=== PATIENT | male | born 1980 | race Caucasian/White ===

== ENCOUNTER → 2022-07-04 11:57 | Outpatient (CLI) | payer OTHER, SELFPAY ==
--- NOTE | ~2022-07-04 | XR_ITS ---
EXAMINATION: XR lumbar spine 2-3V DATE: 07/04/2022 12:19 INDICATION: Low back pain TECHNIQUE: Anteroposterior and lateral views of the lumbar spine, and cone-down lateral view of the l umbosacral junction were obtained. COMPARISON: None. FINDINGS: There is no fracture, dislocation, or subluxation. The vertebral body heights, alignment, a nd intervertebral disc spaces are normal. The paravertebral soft tissues are unremarkable. IMPRESSION: 1. No acute osseous abnormality. Reviewed, dictated and finalized at location A.
== END ==
PROVIDERS: PCP Internal Medicine; Visit Provider Internal Medicine
DX: M54.50 Low back pain, unspecified (principal)
CPT/HCPCS: 72100

== ENCOUNTER → 2022-07-11 07:32 | Outpatient (CLI) | payer OTHER, SELFPAY ==
--- NOTE | ~2022-07-11 | MR_ITS ---
EXAMINATION: MR lumbar spine wo con DATE: 07/11/2022 07:59 INDICATION: Low back pain. TECHNIQUE: Magnetic resonance imaging (MRI) of the lumbar spine was performed without intravenous con trast. Sequences included sagittal T2-weighted FSE, sagittal T2-weighted FS FSE, sagittal T1-weighted FSE, and axial T2-weighted FSE. COMPARISON: None FINDINGS: Bone alignment is normal. There is mild chronic anterior wedging of T12 vertebral body. The re is mildly decreased disc height at L4-L5 and moderately decreased disc height at L5-S1. The distal spinal cord signal intensity is normal. The conus medullaris is at L1. The following disc levels are specifically discussed: L1-L2: The disc does not extend beyond the endplate margin. There is moderate bilateral facet joint o steoarthritis. There is no neural foraminal stenosis. There is no central canal stenosis. L2-L3: The disc does not extend beyond the endplate margin. There is mild bilateral facet joint osteo arthritis. There is no neural foraminal stenosis. There is no central canal stenosis. L3-L4: The disc does not extend beyond the endplate margins. There is mild right and moderate left fa cet joint osteoarthritis. There is no neural foraminal stenosis. There is no central canal stenosis. L4-L5: The disc is bulging with superimposed right central extrusion. There is moderate bilateral fac et joint osteoarthritis. There is mild bilateral neural foraminal stenosis. There is mild central can al stenosis. L5-S1: The disc is bulging and has an annular fissure. There is mild bilateral facet joint osteoarthr itis. There is mild right and moderate left neural foraminal stenosis. There is mild central canal st enosis. IMPRESSION: 1. Moderate lower lumbar spondylosis. Reviewed, dictated and finalized at location A.
== END ==
PROVIDERS: PCP Internal Medicine; Visit Provider Internal Medicine
DX: M47.896 Other spondylosis, lumbar region (principal)
CPT/HCPCS: 72148

== ENCOUNTER 2024-07-09 07:12 | Outpatient (CLI) | payer BC, SELFPAY ==
--- NOTE | ~2024-07-09 | MR_ITS ---
EXAMINATION: MR lumbar spine wo con DATE: 07/09/2024 07:40 INDICATION: Lumbar radicular pain TECHNIQUE: Magnetic resonance imaging (MRI) of the lumbar spine was performed without intravenous con trast. Sequences included sagittal T2-weighted FSE, sagittal T2-weighted FS FSE, sagittal T1-weighted FSE, and axial T2-weighted FSE. COMPARISON: None FINDINGS: Alignment is normal. Chronic mild anterior wedging at T12. Lumbar vertebral body heights are normal. Normal marrow signal. Mild to moderately decreased disc heights, unchanged at L5-S1 and increased at L4-L5. There are annular fissures with disc extrusions at both levels. The conus medullaris terminate s at L1. There is normal signal in the caudal spinal cord. Paravertebral soft tissues are unremarkabl e. The following disc levels are specifically discussed: T12-L1: The disc does not extend beyond the endplate margin. There is mild bilateral facet joint oste oarthritis. There is no neural foraminal stenosis. There is no central canal stenosis. L1-L2: The disc does not extend beyond the endplate margin. There is moderate bilateral facet joint o steoarthritis. There is no neural foraminal stenosis. There is no central canal stenosis. L2-L3: Small left and minimal right foraminal zone disc protrusions. There is mild bilateral facet camelia int osteoarthritis. There is minimal bilateral neural foraminal stenosis. There is no central canal s tenosis. L3-L4: Small bilateral foraminal zone disc protrusions. There is mild to moderate bilateral facet isadora nt osteoarthritis. There is mild bilateral neural foraminal stenosis. There is no central canal steno sis. L4-L5: Disc is mildly bulging with superimposed annular fissure and increased size of a right paracen tral disc extrusion which measures 1.5 cm left to right, 8 mm anteroposteriorly and extends up to 8 m m caudal to the level of the superior endplate of L5. There is moderate bilateral facet joint osteoar thritis. There is moderate bilateral neural foraminal stenosis. There is mild to moderate right-sided predominant central canal stenosis with narrowing of the right lateral recess exerting mass effect o n the traversing right L5 nerve root. L5-S1: Disc is mildly bulging with annular fissure and no significant change in a central disc extrus ion which extends 1.7 cm left to right, 5 mm AP and extending 1-2 mm cephalad and caudal to the level of the endplates. There is mild bilateral facet joint osteoarthritis. There is moderate bilateral ne ural foraminal stenosis. There is mild central canal stenosis. IMPRESSION: 1. Interval progression of moderate lower lumbar spondylosis. Reviewed, dictated and finalized at location A.
== END 2024-07-09 07:13 ==
PROVIDERS: PCP Internal Medicine; Visit Provider Nurse Practitioner Family
DX: M47.26 Other spondylosis with radiculopathy, lumbar region (principal)
CPT/HCPCS: 72148

== ENCOUNTER 2025-04-26 19:02 | Emergency (ER) | payer BC, SELFPAY ==
[2025-04-26] VITALS (14 sets, daily range): BP systolic 118–184; BP diastolic 84–110; PULSE 88–133; RESP 15–33; TEMP 36.8–36.9; O2SAT 90–100
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
--- NOTE | ~2025-04-26 | XR_ITS ---
EXAMINATION: XR chest-chest tube insert/pos Exam Date/Time: 04/26/2025 21:25 CDT HISTORY: CHEST TUBE INSERT #2 Comparison: Same date at 9:20 PM. RESULT: Lines, tubes, and devices: Left thoracostomy tube which is kinked at the level of the side port, tip terminating inferiorly and medially. Lungs and pleura: Left pneumothorax, better visualized on prior CT. Stable left medial basilar conso lidation. Cardiomediastinal silhouette: Stable. Other: No acute upper abdominal finding. Multiple left rib fractures. Left ventricular fracture. IMPRESSION: Kinked left chest tube, tip terminating inferomedially. Reviewed, dictated and finalized at location K.
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
--- NOTE | ~2025-04-26 | XR_ITS ---
EXAMINATION: XR chest-chest tube insert/pos Exam Date/Time: 04/26/2025 21:40 CDT HISTORY: NEW CHEST TUBE PLACEMENT Comparison: Same date at 9:26 PM. FINDINGS/IMPRESSION: Lucency over the left lung base likely represents a portion of the known pneumothorax. Persistent, pe rhaps slightly improved left medial basilar consolidation. Interval replacement/repositioning of the left chest tube, tip projects medially over the lower lung, intrathoracic side port, and no kinking. Subcutaneous gas over the left lateral chest. Reviewed, dictated and finalized at location K.
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
[2025-04-26] MEDS: HYDROmorphone HCL INJ (*CRX) 2 MG/ML VIAL 0.5 MG IV PUSH ×2 (19:55→23:10)
[2025-04-26 20:11] LABS: Basophils Percent Auto 0.2 % (0.2-1.2); Eosinophils Absolute Auto 0.1 K/mm3 (0-0.3); Eosinophils Percent Auto 0.5 % (0-4.4); Hematocrit 48.9 % (42.0-52.0); Hemoglobin 16.2 g/dL (14.0-18.0); Immature Granulocyte Absolute 0.16 K/mm3 (0.00-0.031); Lymphocytes Absolute Auto 1.81 K/mm3 (0.9-3.2); Lymphocytes Percent Auto 11.8 % (18.3-44.2); Mean Corpuscular HGB Conc 33.1 g/dl (32-36); Mean Corpuscular Hemoglobin 29.8 pg (26-34); Mean Corpuscular Volume 90.1 fl (80-100); Mean Platelet Volume 11.1 fl (7.4-10.4); Monocytes Absolute Auto 0.8 K/mm3 (0.1-0.6); Monocytes Percent Auto 5.4 % (2.6-8.5); Neutrophils Absolute Auto 12.4 K/mm3 (1.3-6.7); Neutrophils Percent Auto 81.1 % (45.5-73.1); Platelet Count Result 228 k/mm3 (150-375); Red Blood Count 5.43 M/mm3 (4.6-6.20); Red Cell Distribution Width 12.9 % (11.5-14.5); White Blood Count 15.3 K/mm3 (4.5-10.0)
--- OUTSIDE RECORDS SUMMARY | 2025-04-26 20:20 | XMS_ITS | Clinical Summary ---
Author Organization [facility] Address [address] [place] [address] Care Team Providers Care Outsole Cementer Machine Name Role Phone Unavailable Primary Care Provider Unavailabl e Source Comments [facility],non-owned Affiliates and Associated Physician Practices is amultiple site organization consisting of ambulatory clinics and hospital sitesin [place], [place], [place] and [place]. This disclosure is being madepursuant to the Care Everywhere program and may not contain all information available regarding this patient. Last updated 18.[facility] Allergies No known active allergies Medications * Be aware that medications may not be up to date on this document. Alwaysverify current medications with the patient. 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 [employer] Gender Identity Not on file Sexual Orientation Not on file Last Filed Vital Signs Vital Sign Reading Time Taken Comments Blood Pressure 114/60 07/07/2018 5:15 PM CDT Pulse 67 07/07/2018 5:15 PM CDT Temperature 37.2 C (98.9 F) 07/07/2018 5:15 PM CDT Respiratory Rate 16 04/23/2017 5:08 PM CDT Oxygen Saturation 97% 07/07/2018 5:15 PM CDT Inhaled Oxygen Concentration - - Weight 88.5 kg (195 lb) 07/07/2018 5:15 PM CDT Height 185.4 cm (6' 1) 07/07/2018 5:15 PM CDT Body Mass Index 25.73 07/07/2018 5:15 PM CDT Plan of Treatment Health Maintenance Due Date Last Done Comments HEPATITIS C SCREENING 04/06/1999 DTAP/TDAP/TD VACCINES (1 - Tdap) 2000 HEPATITIS B VACCINE (1 of 3 - 19+ 3-dose series) 2000 LIPID TESTING 05/29/2023 05/29/2018 COVID-19 VACCINE (1 - 2023-2 5 season) 2024 DEPRESSION SCREENING 11/18/2024 INFLUENZA VACCINE (Season Ended) 2025 ZOSTER VACCINE (1 of 2) 2031 HIV SCREENING Completed 05/29/2018 HIB VACCINE Aged Out No longer eligi ble based on patient's age to complete this topic HPV VACCINE Aged Out No longer eligi ble based on patient's age to complete this topic MENINGOCOCCAL (Group B) VACC INE SHARED DECISION-MAKING Aged Out No longer eligibl e based on patient's age to complete this topic MENINGOCOCCAL GROUPS A/C/Y/W VACCINE Aged Out No longer eligible b ased on patient's age to complete this topic PNEUMOCOCCAL VACCINE Aged Out No long er eligible based on patient's age to complete this topic [place] [address]
--- OUTSIDE RECORDS SUMMARY | 2025-04-26 20:20 | XMS_ITS | Clinical Summary ---
Author Organization [facility] Address [address] [place] [address] Phone Care Team Providers Care Laboratory Geneticist Name Role Phone Provider, None Primary Care Provider Unavailabl e Allergies No known active allergies Medications Sildenafil Citrate (VIAGRA PO) Take by mouth. Active Active Problems No known active problems Immunizations Immunization Administration Dates Next Due Influenza Vaccine, Quadrivalent, PF 11/24/2020,1 11/25/2018,11/20/2018 TDAP Vaccine 05/19/2018 Family History Medical History Relation Name Comments Diabetes Father High Cholesterol Father Hypertension Father Pacemaker Father Stroke Father Heart Attack Maternal Grandfather Alzheimer's Disease Maternal Grandmother Breast Cancer Mother Diabetes Mother Uterine Cancer Mother No Known Problems Paternal Grandfather Cancer Paternal Grandmother Uterine Cancer Sister 1 Polycystic Ovarian Syndrome Sister 2 Relation Name Status Comments Father Alive Maternal Grandfather Maternal Grandmother Mother Alive Paternal Grandfather Paternal Grandmother Sister 1 Alive Sister 2 Alive Social History Tobacco Use Types Packs/Day Years Used Date Smoking Tobacco: Former Cigarettes Q uit: 2009 Smokeless Tobacco: Never Tobacco Cessation:Counseling Given: No Comments:started smoking again for a short time in 2014 and then quit again Alcohol Use Standard Drinks/Week Comments Yes 7 (1 standard drink = 0.6 oz pur e alcohol) Rare PHQ-2 Answer Date Recorded Total Score - Questions 1-9 0 /0 05/2021 Sexually Active Control Partners Comments Yes Implant, Condom Female Sex and Gender Information Value Date Recorded Sex Assigned at Not on file Legal Sex Male 10:10 PM CDT Gender Identity Not on file Sexual Orientation Not on file 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 Not on file Not on file Last Filed Vital Signs Vital Sign Reading Time Taken Comments Blood Pressure 110/68 11/24/2020 11:24 AM FLOOR ATTENDANT Pulse 78 11/24/2020 11:24 AM FLOOR ATTENDANT Temperature 37.1 C (98.7 F) 11/24/2020 11:24 AM FLOOR ATTENDANT Respiratory Rate 16 11/24/2020 11:24 AM FLOOR ATTENDANT Oxygen Saturation 98% 11/24/2020 11:24 AM FLOOR ATTENDANT Inhaled Oxygen Concentration - - Weight 92.5 kg (204 lb) 11/24/2020 11:24 AM FLOOR ATTENDANT Height 185.4 cm (6' 1) 11/24/2020 11:24 AM FLOOR ATTENDANT Body Mass Index 26.91 11/24/2020 11:24 AM FLOOR ATTENDANT Plan of Treatment Health Maintenance Due Date Last Done Comments Human Papillomavirus (HPV) Immunization (1 - Male 3-dose series) 1996 Hepatitis B Immunization (1 of 3 - 19+ 3-dose series) 2000 SARS-COV-2 Immunization ( - season) 2024 10/29/2021, 02/17/2021, 01/27/2021 Influenza Immunization (Seas on Ended) 2025 11/24/2020, 09/25/2019, 11/20/2018 Td Immunization Every 10 Yea rs (Adults With 1 Tdap) 05/19/2028 05/19/2018 Respiratory Syncytial Virus (RSV) Immunization (Adult) (1 - 1-dose 75+ series) 2056 Hepatitis C Virus (HCV) Screening Completed 12/22/2019 Meningococcal Immunization (ACWY) Aged Out No longer eligible b ased on patient's age to complete this topic Pneumococcal Immunization Combined Aged Out No longer eligible b ased on patient's age to complete this topic Rotavirus Immunization Aged Out No lo nger eligible based on patient's age to complete this topic Procedures Procedure Name Priority Date/Time Associated Diagnosis Comments HEPATITIS PANEL ACUTE (AHP) Routine 12/22/2019 3:14 PM FLOOR ATTENDANT Screen for STD (sexually transmitted disease) from Last 3 Months or Most Recently Relevant to Health Maintenance Results * HEPATITIS PANEL ACUTE (AHP) (12/22/2019 3:14 PM FLOOR ATTENDANT) HEPATITIS A IGM ANTIBODY NON DETECTED NON DETECTED 12/22/2019 10:27 PM FLOOR ATTENDANT [facility] Comment: IGM Antibodies to HAV not detected. Does not exclude early acute or recovered HAV infection. HEP B CORE AB (IGM) NON DETECTED NON DETECTED 12/22/2019 10:27 PM FLOOR ATTENDANT [facility] Comment:IGM anti-HBC not det ected. Does not exclude the possibility of exposure to or infection with HBV. HEPATITIS B SURFACE ANTIGEN NON DETECTED NON DETECTED 12/22/2019 10:27 PM FLOOR ATTENDANT [facility] Comment:A nonreactive test r esult does not exclude the possibility of exposure to or infection with Hepatitis B virus. A nonreactive test result in individuals with prior exposure to hepatitis B may be due to antigen levels below the detection limit of this assay or lack of antigen reactivity to the antibodies in this assay. hepatitis C antibody 0.08 <1 S/CO 12/22/2019 10:27 PM FLOOR ATTENDANT [facility] Comment: Signal/Cutoff ratio < 0.79 is Nondetected Signal/Cutoff ratio 0.80-0.99 is Grayzone Signal/Cutoff ratio > 0.99 is Detected Supplemental assays are recommended if signal/cutoff ratio is >/=1.00. Signal/cutoff ratio result >/= 5.00 is 97% predictive of positivity for recombinant immunoblot assay (RIBA) and will be reported to the [place] Department of Public Health as required. Blood specimen (specimen) Venipuncture / Unknown 12/22/2019 3:14 PM FLOOR ATTENDANT 12/22/2019 3:14 PM FLOOR ATTENDANT us Annia Cortez APRN, ADJUNCT PHYSICS INSTRUCTOR HEMATOLOGY ORDERABLES F inal Result [facility] [address] [place] [address], [place] from Last 3 Months or Most Recently Relevant to Health Maintenance Care Teams Laboratory Geneticist Relationship Specialty Start Date End Date Provider, None [place] PCP - General 07/11/21
--- OUTSIDE RECORDS SUMMARY | 2025-04-26 20:20 | XMS_ITS | Clinical Summary ---
Author Organization [facility] [address] [place] [id number] Care Team Providers Care Civil Service Worker Name Role Phone Rosaura Sanchez MD Primary Care Provider [phone] Allergies No known active allergies Medications cephalexin (KEFLEX) 250 mg capsule Take 1 capsule (250 mg total) by mouth 4 (four) times a day Active ofloxacin (OCUFLOX) 0.3 % ophthalmic solutionIndications :Acute bacterial conjunctivitis of both eyes instill 2 drops in affected eye(s) every 2 to 4 hours for 2 days, then 2 drops 4 times daily on days 3 through 7 5 mL 4 Active tadalafiL, pulm. hypertension, 20 mg/5 mL (4 mg/mL) suspension Take 5 mg by mouth daily 4 Active Active Problems No known active problems Surgical History Surgery Date Site/Laterality Comments APPENDECTOMY Medical History Medical History Date Comments Lumbar stenosis Disc disorder of lumbar region Family History Medical History Relation Name Comments Diabetes Father Heart disease Father Stroke Father Diabetes Maternal Grandfather Heart disease Maternal Grandfather Diabetes Maternal Grandmother Cancer Mother Diabetes Mother Cancer Other Cancer Paternal Grandmother Cancer Sister Relation Name Status Comments Father Maternal Grandfather Maternal Grandmother Mother Other Paternal Grandmother Sister Social History Tobacco Use Types Packs/Day Years Used Date Smoking Tobacco: Former Smokeless Tobacco: Never Tobacco Cessation:Counseling Given: No Alcohol Use Standard Drinks/Week Comments Yes 0 (1 standard drink = 0.6 oz pur e alcohol) Sex and Gender Information Value Date Recorded Sex Assigned at Not on file Legal Sex Male 9:04 AM HELP DESK REP Gender Identity Not on file Sexual Orientation Not on file Obstetrics History Last Filed Vital Signs Vital Sign Reading Time Taken Comments Blood Pressure 129/78 11/30/2024 9:28 AM HELP DESK REP Pulse 64 11/30/2024 9:28 AM HELP DESK REP Temperature 36.9 C (98.5 F) 12/20/2023 8:22 AM HELP DESK REP Respiratory Rate 18 12/20/2023 8:22 AM HELP DESK REP Oxygen Saturation 96% 12/20/2023 8:22 AM HELP DESK REP Inhaled Oxygen Concentration - - Weight 93.4 kg (206 lb) 11/30/2024 9:28 AM HELP DESK REP Height 185.4 cm (6' 1) 11/30/2024 9:28 AM HELP DESK REP Body Mass Index 27.18 11/30/2024 9:28 AM HELP DESK REP Plan of Treatment Health Maintenance Due Date Last Done Comments Depression Screening 1981 Hepatitis C Screening 1981 Varicella Vaccines (1 of 2 - 13+ 2-dose series) 1994 Regular Well Visit/Exam 18-64 1999 Covid-19 Vaccine (2023-2 5 season) 2024 10/29/2021, 02/17/2021, 01/27/2021 Influenza Vaccine (Season Ended) 2025 11/24/2020, 09/25/2019, 11/20/2018 DTaP/Tdap/Td Vaccine (2 - Td or Tdap) 05/19/2028 05/19/2018 Hepatitis B Screening Completed 07/10/2023 , 06/20/2022 HPV Vaccines Aged Out No longer eligi ble based on patient's age to complete this topic Pneumococcal vaccine <65 Aged Out No longer eligible based on patient's age to complete this topic Insurance [employer] OOS [employer] O[employer] Care Teams Civil Service Worker Relationship Specialty Start Date End Date Rosaura Sanchez MD PCP - General Internal Medicine 12/20/23
--- OUTSIDE RECORDS SUMMARY | 2025-04-26 20:20 | XMS_ITS | Referral Summary ---
Author Organization [facility] Physician Of [facility] [address] Address [address] [place] [address] Care Team Providers Care Well Logging Captain Name Role Phone Rosaura Sanchez MD Primary Care Provider [phone] Allergies No known active allergies Medications cephalexin [...] Active Active Problems No known active problems Social History Tobacco Use Types Packs/Day Years Used Date Smoking Tobacco: Former Smokeless Tobacco: Never Tobacco Cessation:Counseling Given: No Alcohol Use Standard Drinks/Week Comments Yes 0 (1 standard drink = 0.6 oz pur e alcohol) Sex and Gender Information Value Date Recorded Sex Assigned at Not on file Legal Sex Male 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 Gender Identity Not on file Sexual Orientation Not on file Last Filed Vital Signs Vital Sign Reading Time Taken Comments Blood Pressure 129/78 11/30/2024 9:28 AM SOUND RECORDING TECHNICIAN Pulse 64 11/30/2024 9:28 AM SOUND RECORDING TECHNICIAN Temperature 36.9 C (98.5 F) 12/20/2023 8:22 AM SOUND RECORDING TECHNICIAN Respiratory Rate 18 12/20/2023 8:22 AM SOUND RECORDING TECHNICIAN Oxygen Saturation 96% 12/20/2023 8:22 AM SOUND RECORDING TECHNICIAN Inhaled Oxygen Concentration - - Weight 93.4 kg (206 lb) 11/30/2024 9:28 AM SOUND RECORDING TECHNICIAN Height 185.4 cm (6' 1) 11/30/2024 9:28 AM SOUND RECORDING TECHNICIAN Body Mass Index 27.18 11/30/2024 9:28 AM SOUND RECORDING TECHNICIAN Plan of Treatment [place] [id number] [place] [id number] OOS Care Teams Well Logging Captain Relationship Specialty Start Date End Date Rosaura Sanchez MD PCP - General Internal Medicine 12/20/23
[2025-04-26 20:21] LABS: Alanine Aminotransferase 46 U/L (6-50); Albumin Level 4.3 g/dL (3.5-5.1); Alkaline Phosphatase 48 U/L (38-126); Anion Gap 8 mmol/L (4-12); Aspartate Amino Transferase 40 U/L (17-59); Bilirubin,Total 0.5 mg/dL (0.2-1.3); Blood Urea Nitrogen 18 mg/dL (9-20); Calcium 8.6 mg/dL (8.4-10.2); Carbon Dioxide 24 mmol/L (22-30); Chloride 102 mmol/L (98-107); Estimated CRCL calculation 67 ml/min; Estimated Glomerular Filt Rate 56; Glucose 100 mg/dL (65-110); Potassium 4.2 mmol/L (3.4-5.0); Sodium 134 mmol/L (137-145); Total Protein 6.9 g/dL (6.3-8.2)
[2025-04-26 20:22] LABS: INR 1.1
[2025-04-26 20:23] LABS: Partial Thromboplastin Time 23.1 Seconds (22.3-36.8)
[2025-04-26] MEDS: LACTATED RINGERS 1,000 ML 999 ML IV CONT (20:38)
[2025-04-26] MEDS: KETAMINE HCL (*CRX) 500 MG/10 ML VIAL 474 MG IM (20:50)
[2025-04-26] MEDS: MIDAZOLAM HCL (*CRX) 2 MG/2 ML VIAL (21:38)
[2025-04-26] MEDS: TETANUS,DIPHTHERIA,AC PERTUSSIS ADULT (0.5 ML) BOOSTRIX IM (22:51)
[2025-04-26] MEDS: ceFAZolin 2 GM/D5W 50 ML 2 GM/50 ML BAG IVPB (22:52)
--- NOTE | 2025-04-26 22:55 | PC.NURSE ---
Moderate sedation performed for a chest tube Time out taken at 2048 Ketamine 474mg IM bilateral vastus lateralis given at 2049 vitals at 2050 are pulse 88, 100% O2 on 15L, respirations of 33, CO2 of 40, and blood pressure of 140/89. X-Ray of chest tube placement showed a kink in the tube. EDP stated we are going to take out the current chest tube and replace it. EDP verbal order of 2mg Versed to be given IV for the replacement of the chest tube. 2mg Versed given at 2137. Vitals at that time pulse of 144, 94% on 15L, respirations of 18, CO2 of 49, and blood pressure of 156/106. Patient fully awake at 2154. pt is A+Ox4 at this time. EDP used a 32 fr chest tube.
[2025-04-26] MEDS: KETOROLAC 15 MG/ML VIAL (*BKC) IV PUSH (23:10)
== END 2025-04-27 | disposition short-term general hospital (02) ==
PROVIDERS: Emergency Provider Emergency Medicine; PCP Family Medicine
DX: S22.5XXA Flail chest, initial encounter for closed fracture (principal); S42.032A Displaced fracture of lateral end of left clavicle, initial encounter for closed fracture; S32.592A Other specified fracture of left pubis, initial encounter for closed fracture; S27.0XXA Traumatic pneumothorax, initial encounter; Z23 Encounter for immunization; V18.4XXA Pedal cycle driver injured in noncollision transport accident in traffic accident, initial encounter; Y93.55 Activity, bike riding
CPT/HCPCS: 32551; 36415; 70450; 71045; 71260; 72125; 74177; 80053; 85025; 85610; 85730; 90471; 90715; 96372; 96374; 96375; 96376; 99285; C1729; J0690; J1171; J1885; J2250; J7120; Q9967

== ENCOUNTER 2025-08-03 12:30 | Outpatient (RCR) | payer BC, SELFPAY ==
--- NOTE | 2025-05-14 15:34 | PCOTNOTE ---
Pt. present on this date for occupational therapy evaluation. Pt. has not yet seen orthopedic physician since discharge from Acute Inpatient Rehab for clearance of weight bearing (currently Non Weight Bearing on L shoulder) or ROM of shoulder with non-surgically treated clavicular fx. Pt. continues to participate in R UE exercise routine and maintains active ROM and use of L UE elbow, wrist, and hand. Pt. will have greater benefit from evaluation after follow up with orthopedic surgeon to determine plan for possible medical intervention or and clarification of orders for weight bearing, ROM, and/or strengthening activity.
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
--- NOTE | 2025-05-18 09:56 | OPREHPOC ---
Outpatient Therapy Plan of Care This is a Multidisciplinary Plan of Care that may contain components documented by all disciplines (PT, OT, and ST.) PT Problem 1 PT Problem #1 Knowledge Deficit PT Goal 1 Goal / Goal Update 1* independent with HEP Target Visit 10 PT Problem 2 PT Problem #2 Pain PT Goal 1 Goal / Goal Update 1* pain rating at worst of L hip 4/10, with increased activity Target Visit 10 PT Problem 3 PT Problem #3 Impaired Strength PT Goal 1 Goal / Goal Update increase strength of L LE to 4+/5, to improve mobility skills Target Visit 10 PT Problem 4 PT Problem #4 Impaired Functional Mobility PT Goal 1 Goal / Goal Update 1* 2 minute walking test distance without assistive device, 325' 2* up/down 12 steps with one hand railing, independent 3* pt report walking out in community with cane Target Visit 10
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
--- NOTE | 2025-05-28 12:05 | OPREHPOC ---
Outpatient Therapy Plan of Care This is a Multidisciplinary Plan of Care that may contain components documented by all disciplines (PT, OT, and ST.) PT Problem 1 PT Problem #1 Knowledge Deficit PT Goal 1 Goal / Goal Update 1* independent with HEP Target Visit 10 PT Problem 2 PT Problem #2 Pain PT Goal 1 Goal / Goal Update 1* pain rating at worst of L hip 4/10, with increased activity Target Visit 10 PT Problem 3 PT Problem #3 Impaired Strength PT Goal 1 Goal / Goal Update increase strength of L LE to 4+/5, to improve mobility skills Target Visit 10 PT Problem 4 PT Problem #4 Impaired Functional Mobility PT Goal 1 Goal / Goal Update 1* 2 minute walking test distance without assistive device, 325' 2* up/down 12 steps with one hand railing, independent 3* pt report walking out in community with cane Target Visit 10 PT Problem 5 PT Problem #5 Impaired Range of Motion PT Goal 1 Goal / Goal Update 1. Improve left shoulder flexion ROM to 170 degrees 2. Improve left shoulder external rotation to 80 degrees Target Visit 10
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
--- NOTE | 2025-07-02 14:45 | OPREHPOC ---
Outpatient Therapy Plan of Care This is a Multidisciplinary Plan of Care that may contain components documented by all disciplines (PT, OT, and ST.) PT Problem 1 PT Problem #1 Knowledge Deficit PT Goal 1 Goal / Goal Update 1* independent with HEP 07-02-25 progress: d/c hip treatment and continue shoulder treatment; goal met continue to progress L shoulder HEP and posture Target Visit 18 PT Problem 2 PT Problem #2 Pain PT Goal 1 Goal / Goal Update 1* pain rating at worst of L hip 4/10, with increased activity 07-02-25 progress: d/c hip treatment and continue shoulder treatment; goal met Target Visit 10 Progress Met PT Goal 2 Goal / Goal Update 07-02-25 L shoulder 1* pain rating of 3/10 at worst Target Visit 18 PT Problem 3 PT Problem #3 Impaired Strength PT Goal 1 Goal / Goal Update increase strength of L LE to 4+/5, to improve mobility skills 07-02-25 progress: d/c hip treatment and continue shoulder treatment; goal met Target Visit 10 Progress Met PT Goal 2 Goal / Goal Update 07-02-25 progress: shoulder goals: in standing L shoulder x 5 reps: 1* flexion to 100' with 3# hand wt 2* ER with elbow at side 4# 3* bilateral UE 10# box lift from waist/floor height x 3 reps Target Visit 18 PT Problem 4 PT Problem #4 Impaired Functional Mobility PT Goal 1 Goal / Goal Update 1* 2 minute walking test distance without assistive device, 325' 2* up/down 12 steps with one hand railing, independent 3* pt report walking out in community with cane 07-02-25 progress: d/c hip treatment and continue shoulder treatment; goal met Target Visit 10 Progress Met PT Problem 5 PT Problem #5 Impaired Range of Motion PT Goal 1 Goal / Goal Update 1. Improve left shoulder flexion ROM to 170 degrees 2. Improve left shoulder external rotation to 80 degrees 07-02-25 progress: goal not met NEW GOAL: active L shoulder in standing 1* flexion to 140' 2* IR- reach behind back, palm to above waist 3* ER- reach behind head, fingers to cervical spine Target Visit 18
--- NOTE | 2025-07-02 14:46 | PTOPPROG ---
Assessment and note entered by Alondra Vazquez, PT Assessment Status Progress ICD-10 Condition Codes (PT) Difficulty Walking R26.2,Abnormalities of gait and mobility R26.9,Weakness R53.1 Other ICD-10 Condition Codes ( R26.9; rib fracture S22.49Xa, acetabular fx S38. PT) 413Aclavicle fx S42.009A Onset 04-26-25 Subjective Information doing much better; saw and he was pleased with how he is doing and gave him orders to progress his therapy; with arm--not doing heavy lifting; some tightness with reaching behind head to wash his head; not doing yard work of pulling weeds; able to carry laundry; feel like need more ROM of shoulder; with hip/leg: with walking 3 miles, hip will ache and have some low back ache too; did do a little running too, no problems on stairs and confident that it is strong and will be OK; HIP: range of pain in the past week: 0-4/10; increase pain with running/fast walking about 1 mile decrease pain: sit, rest, tylenol L shoulder: pain range in the past week 0-6/10 increase pain: raise up overhead or to the side; lean on arm, lie on L side decrease pain: rest, ice, biofreeze, tylenol with sleeping, back to his normal sleeping; hardly have any more pain in trunk or ribs at all; Assessment PT Clinical Summary Fadi has received a total of 10 PT sessions, for R hip and L shoulder. He is very motivated and has improved in all areas ; today presents with: L UE: pain rating from 0-4/10; self assessment with Quick DASH rating of 30% limitation in activity level; shoulder ROM: active in standing/ passive in supine: flexion 110/140'; abduction 110/110'; IR with reaching behind back, palm to waist level/ 70 ; ER- reaching to back of head, fingers to back of head/70' strength: standing L UE with hand weight x 5 reps : - flexion to ~ 90' with 2# - abduction to ~70' with 2# - ER with elbow at side with 3# -elbow flexion/extension with 10# with L hip: pain rating of 0-4/10; gross strength 4+/5; LE functional scale rating of 15% limitation in activity level; 2 minute walking test distance is 600' without device; he was able to run for 1 mile at home; Education for HEP for shoulder and hip completed. The goals were achieved for hip. Completed treatment for L hip. He is to continue progressing his activity as tolerated, monitor pain with increase activity. The goals for UE were partially achieved. Continue PT treatment for L UE, with progression of strengthening per dr villegas. Plan of Care Interventions Electrical Stimulation,Gait Training,Hot Pack/Cold Pack,Manual Therapy,Neuro Re-education,Patient/ Caregiver Education,Therapeutic Activities, Therapeutic Exercise PT Services Indicated Yes Treatment Frequency and 1-2x/wk for 8 visits Duration These treatments will address the objective and functional deficits as defined above. The patient will be advanced safely and appropriately in order for the patient to progress towards his/her prior level of function. Additional exercises will be introduced and as well as a comprehensive home exercise program upon discharge, if needed, ?to ensure carryover of functional gains achieved in the clinic. This treatment plan has been reviewed and agreement upon by the patient.
--- NOTE | 2025-07-13 15:59 | PCPTNOTE ---
Amended Note 07/13 @14:54 due to forgetting to add in exercise Pt performed.
--- NOTE | 2025-08-03 13:19 | OPREHPOC ---
Outpatient Therapy Plan of Care This is a Multidisciplinary Plan of Care that may contain components documented by all disciplines (PT, OT, and ST.) PT Problem 1 PT Problem #1 Knowledge Deficit PT Goal 1 Goal / Goal Update 1* independent with HEP 07-02-25 progress: d/c hip treatment and continue shoulder treatment; goal met continue to progress L shoulder HEP and posture 08-03-25 d/c goals met Target Visit 18 Progress Met PT Problem 2 PT Problem #2 Pain PT Goal 1 Goal / Goal Update 1* pain rating at worst of L hip 4/10, with increased activity 07-02-25 progress: d/c hip treatment and continue shoulder treatment; goal met Target Visit 10 Progress Met PT Goal 2 Goal / Goal Update 07-02-25 L shoulder 1* pain rating of 3/10 at worst 08-03-25 d/c goal met Target Visit 18 Progress Met PT Problem 3 PT Problem #3 Impaired Strength PT Goal 1 Goal / Goal Update increase strength of L LE to 4+/5, to improve mobility skills 07-02-25 progress: d/c hip treatment and continue shoulder treatment; goal met Target Visit 10 Progress Met PT Goal 2 Goal / Goal Update 07-02-25 progress: shoulder goals: in standing L shoulder x 5 reps: 1* flexion to 100' with 3# hand wt 2* ER with elbow at side 4# 08-03-25 d/c goals met 3* bilateral UE 10# box lift from waist/floor height x 3 reps Target Visit 18 Progress Met PT Problem 4 PT Problem #4 Impaired Functional Mobility PT Goal 1 Goal / Goal Update 1* 2 minute walking test distance without assistive device, 325' 2* up/down 12 steps with one hand railing, independent 3* pt report walking out in community with cane 07-02-25 progress: d/c hip treatment and continue shoulder treatment; goal met Target Visit 10 Progress Met PT Problem 5 PT Problem #5 Impaired Range of Motion PT Goal 1 Goal / Goal Update 1. Improve left shoulder flexion ROM to 170 degrees 2. Improve left shoulder external rotation to 80 degrees 07-02-25 progress: goal not met NEW GOAL: active L shoulder in standing 1* flexion to 140' 2* IR- reach behind back, palm to above waist 3* ER- reach behind head, fingers to cervical spine 08-03-25 d/c goals met Target Visit 18 Progress Met
--- NOTE | 2025-08-03 13:19 | PTOPDC ---
Assessment and note entered by Alondra Vazquez, PT Assessment Status Discharge ICD-10 Condition Codes (PT) Difficulty Walking R26.2,Abnormalities of gait and mobility R26.9,Weakness R53.1 Other ICD-10 Condition Codes ( R26.9; rib fracture S22.49Xa, acetabular fx S38. PT) 413Aclavicle fx S42.009A Onset 04-26-25 Subjective Information shoulder is not limiting him from doing his usual activities, but with sleeping wakes him up; cannot reach all the way up, but doing everything OK; have been doing all the exercises at home; see the dr on , next week; went on a 20 mile bike ride on the trails few days ago and did OK; have not returned to all of his usual weight exercises; agree to d/c from PT. Reported Pain Level Pain Score 0,0: Self Report Additional Pain Score Comments L shoulder pain range in the past week 0-3/10; pain with lying on shoulder or rolling on to it with sleeping; also have stretching with moving shoulder, sometimes pops and clicks; Assessment PT Clinical Summary Fadi has received a total of 18 PT sessions. With today's assessment, he has improved in all areas: pain range 0-3/10 in L shoulder; has returned to his home and work tasks; sleeping is disrupted 2x /week due to shoulder pain; self assessment with Quick DASH rating of 11% limitation in activity level. L shoulder active ROM in standing: flexion 145', abduction 145'; IR- reaching behind his back, thumb to inferior edge of scapula and ER- reach behind head, fingers to cervical spine. Strength : standing L UE with hand weight x 5 reps : - flexion to ~ 100' with 5# - abduction to ~100' with 5# - ER with elbow at side with 5# -elbow flexion/extension with 15# bilateral UE box lift, from waist/floor height with maximum to 45#, with correct body mechanics planks: forward on both UE's 50 seconds and on L side x 48 seconds. Education completed for HEP and posture/body mechanics. The goals were achieved. Discharge PT services. He is to continue with HEP , progression of strengthening as tolerated-- monitor pain and keep good posture with exercises. Plan of Care PT Services Indicated No
== END 2025-08-03 14:13 | disposition home or self-care (01) ==
LOC: ANHPT 12:30
PROVIDERS: PCP Family Medicine; Visit Provider Family Medicine
DX: R26.9 Unspecified abnormalities of gait and mobility (principal); S22.49XA Multiple fractures of ribs, unspecified side, initial encounter for closed fracture; S32.41 Fracture of anterior wall of acetabulum; S42.009A Fracture of unspecified part of unspecified clavicle, initial encounter for closed fracture
CPT/HCPCS: 97014; 97035; 97110; 97112; 97140; 97161; 97164; 97165; 97530; G0283